=== PATIENT | male | born 1950 | race Caucasian/White ===

== ENCOUNTER 2018-07-15 12:19 | Outpatient (CLI) | payer MEDICARE, MEDICAID | END 2018-07-15 23:59 | disposition home or self-care (01) | LOC: CARD DIAG 12:19 | PROVIDERS: ATTEND Physician Assistant | DX: I11.9 Hypertensive heart disease without heart failure (principal); I25.9 Chronic ischemic heart disease, unspecified; I99.9 Unspecified disorder of circulatory system; F17.200 Nicotine dependence, unspecified, uncomplicated | CPT/HCPCS: 93306 ==

== ENCOUNTER 2018-12-05 12:32 | Day surgery (SDC) | payer MEDICARE, MEDICAID ==
[~2018-12-05] VITALS: Ht 177.8 cm; Wt 91.8 kg
[2018-12-05 12:51] VITALS: BP 160/89
[2018-12-05] MEDS ORDERED: fentaNYL/PF 50MCG/1 ML 2ML syringe ONE (12:53)
[2018-12-05] MEDS ORDERED: MIDAZolam 5mg/5ml vial ONE (12:54)
[2018-12-05] MEDS ORDERED: IPRA3AMP9 IH (13:09)
[2018-12-05] MEDS ORDERED: UMEC62.5 INH (13:09)
[2018-12-05] MEDS ORDERED: ALBU18HF2 INH (13:10)
[2018-12-05] MEDS ORDERED: BUDE10.2 INH (13:10)
[2018-12-05] MEDS ORDERED: LISI1TAB9 PO (13:29)
[2018-12-05] MEDS ORDERED: BICA50TA7 PO (13:29)
[2018-12-05] MEDS ORDERED: FLO0.4C PO (13:30)
[2018-12-05] MEDS ORDERED: METF-438 PO (13:30)
[2018-12-05 14:41] VITALS: BP 118/78
[2018-12-05 14:51] VITALS: BP 153/80
[2018-12-05 15:01] VITALS: BP 129/83
[2018-12-05 15:10] VITALS: BP 173/94
[2018-12-05 15:20] VITALS: BP 151/82
== END 2018-12-05 15:26 | disposition home or self-care (01) ==
LOC: GI LAB 12:32
PROVIDERS: ATTEND Internal Medicine Gastroenterology
DX: Z12.11 Encounter for screening for malignant neoplasm of colon (principal); K63.5 Polyp of colon; K62.1 Rectal polyp; K64.8 Other hemorrhoids
CPT/HCPCS: 45380; 45385; G0500; J2250; J3010; J7030; 99152; 99153; A4620

== ENCOUNTER 2019-04-11 14:13 | Inpatient (IN) | payer MEDICARE, MEDICAID ==
[~2019-04-11] VITALS: Ht 180.3 cm; Wt 84.0 kg
[~2019-04-11 14:13] MED LIST: ALBU18HF2 INH; BICA50TA7 PO; BUDE10.2 INH; FLO0.4C PO; IPRA3AMP9 IH; LISI1TAB32 PO; METF-438 PO; UMEC62.5 PO
[2019-04-11] MEDS ORDERED: ipratropium/albuterol 3ml nebule NEB ONE (15:20)
[2019-04-11] MEDS ORDERED: CefTRIAXone 2gm/D5W 50ml 50 ML IV ONE (15:20)
[2019-04-11] MEDS ORDERED: normal saline 1000ML IV soln IV ONE (15:20)
[2019-04-11 16:24] LABS: BASOPHILS # (AUTO) 0.1 X10'3 (0-0.2); BASOPHILS % (AUTO) 1.3 % (0-1); EOSINOPHILS # (AUTO) 0.3 X10'3 (0-0.9); EOSINOPHILS % (AUTO) 4.6 % (0-6); HEMATOCRIT 40.5 % (42.0-52.0); HEMOGLOBIN 14.1 g/dl (14.0-17.9); LYMPHOCYTES # (AUTO) 0.8 X10'3 (1.1-4.8); LYMPHOCYTES % (AUTO) 10.6 % (21-51); MEAN CORPUSCULAR HEMOGLOBIN 32.3 PG (27.0-31.0); MEAN CORPUSCULAR HGB CONC 34.8 g/dL (33.0-36.5); MEAN CORPUSCULAR VOLUME 92.8 FL (78-98); MEAN PLATELET VOLUME 8.6 FL (7.4-10.4); MONOCYTES # (AUTO) 0.7 X10'3 (0-0.9); MONOCYTES % (AUTO) 10.1 % (2-12); NEUTROPHILS # (AUTO) 5.4 X10'3 (1.8-7.7); NEUTROPHILS % (AUTO) 73.4 % (42-75); PLATELET COUNT 207 X10'3 (140-440); RED BLOOD COUNT 4.36 X10'6 (4.70-6.10); RED CELL DISTRIBUTION WIDTH 14.3 % (11.5-14.5); WHITE BLOOD COUNT 7.3 X10'3 (4.5-11.0)
[2019-04-11 16:26] LABS: D-DIMER 0.57 MG/L FEU (0-0.50)
--- NOTE | 2019-04-11 16:27 | NUR ---
RT AT BEDSIDE.
[2019-04-11 16:30] LABS: ALANINE AMINOTRANSFERASE 34 U/L (12-78); ALBUMIN 3.5 G/DL (3.4-5.0); ALKALINE PHOSPHATASE 52 IU/L (46-116); ANION GAP 11 (8-16); ASPARTATE AMINO TRANSFERASE 29 U/L (10-37); BILIRUBIN,TOTAL 0.4 MG/DL (0.1-1.0); BLOOD UREA NITROGEN 34 MG/DL (7-18); BUN/CREATININE RATIO 20.2 (5.4-32.0); CALCIUM 9.4 MG/DL (8.5-10.1); CHLORIDE 101 MMOL/L (99-107); CREATININE 1.68 MG/DL (0.60-1.10); GLUCOSE 107 MG/DL (70-104); MAGNESIUM 1.3 MG/DL (1.5-2.4); POTASSIUM 3.5 MMOL/L (3.5-5.1); SODIUM 137 MMOL/L (135-145); TOTAL CARBON DIOXIDE 24.8 MMOL/L (24-32); TOTAL PROTEIN 6.9 G/DL (6.4-8.2); eGFR 41 ML/MIN
[2019-04-11 17:02] LABS: CLARITY,URINE CLOUDY (Clear); COLOR,URINE YELLOW (Yellow); GLUCOSE, URINE NEGATIVE (Neg); KETONES,URINE TRACE mg/dl (Neg); LEUKOCYTE ESTERASE ,URINE MODERATE (Neg); NITRITES, URINE NEGATIVE (Neg); OCCULT BLOOD,URINE LARGE (Neg); PROTEIN,URINE 100 mg/dl (Neg); UROBILINOGEN,URINE 0.2 E.U/dL (0.2-1.0)
[2019-04-11 17:04] LABS: UA COLLECTION TYPE URINAL
[2019-04-11 17:26] LABS: MUCUS STRANDS MANY /LPF (Neg); SQUAMOUS EPITHELIAL CELL,UR FEW /LPF (FEW)
[2019-04-11 17:28] LABS: COARSE GRANULAR CAST 0-3 /LPF (NEGATIVE); TRANSITIONAL EPI CELLS,URINE FEW /HPF
[2019-04-11 17:30] LABS: RBC,URINE 20-50 /HPF (0-2); WBC,URINE 50-100 /HPF (0-4)
[2019-04-11 17:31] LABS: BACTERIA,URINE FEW /HPF (Neg); RENAL CELLS, URINE FEW /HPF
[2019-04-11] MEDS ORDERED: acetaminophen 325mg tablet PO PRN (17:55)
[2019-04-11] MEDS ORDERED: mag hydrox/Alum hydrox/simeth 30ml oral suspension PO PRN (17:55)
[2019-04-11] MEDS ORDERED: magnesium hydroxide 30ml (MOM) UD suspension PO PRN (17:55)
[2019-04-11] MEDS ORDERED: ondansetron/PF 4mg/2ml inj IV PRN (17:55)
[2019-04-11] MEDS: normal saline 1000ml 1,000 ML IV SCH (19:45)
[2019-04-11] MEDS: heparin, porcine 5000 units/ml vial SQ SCH (19:46)
[2019-04-11] MEDS ORDERED: albuterol 2.5 MG/3 ML nebule NEB PRN ×2 (19:55→21:41)
[2019-04-11] MEDS: UMECLIDINIUM BROMIDE IH SCH (20:25)
[2019-04-11 21:10] VITALS: BP 140/76
--- NOTE | 2019-04-11 21:12 | NUR ---
pt arrived to floor via gurney on tele box. Transferred to bed SBA. VSS. Removed clothing and completed skin check, removed depends and placed dry flows. No complaints. Worried about incontinence and BM.
[2019-04-11] MEDS ORDERED: dextrose ORAL solution 15 GM/59 ML bottle PO PRN ×2 (21:25)
[2019-04-11] MEDS ORDERED: magnesium 4gm in 100ml NS 100 ML IV PRN (21:25)
[2019-04-11] MEDS ORDERED: potassium CL 10mEq/100ml bag 100 ML IV PRN (21:25)
[2019-04-11] MEDS ORDERED: insulin Lispro (HumaLOG) vial - multi-dose SQ SCH (21:25)
[2019-04-11] MEDS ORDERED: glucagon, human recombinant 1mg kit SUBCUT PRN (21:25)
[2019-04-11] MEDS ORDERED: dextrose 50%-water 50ml dispensing syringe IV PRN ×2 (21:25)
[2019-04-11] MEDS ORDERED: magnesium 2GM in 50ml NS 50 ML IV PRN (21:25)
[2019-04-11] MEDS: Melatonin 3mg tablet PO PRN (21:56)
[2019-04-11] MEDS: magnesium Cl slow-release 64mg tablet PO PRN (22:45)
[2019-04-11] MEDS: albuterol 2.5 MG/3 ML nebule NEB SCH (23:05)
[2019-04-11] MEDS: budesonide 0.5mg/2ml UD nebule IH SCH (23:06)
[2019-04-12] VITALS: BP 112/48
[2019-04-12] MEDS: albuterol 2.5 MG/3 ML nebule NEB SCH ×4 (03:05→20:31)
[2019-04-12] MEDS: normal saline 1000ml 1,000 ML IV SCH ×2 (05:08→14:11)
[2019-04-12 05:25] LABS: BASOPHILS # (AUTO) 0.1 X10'3 (0-0.2); BASOPHILS % (AUTO) 1.2 % (0-1); EOSINOPHILS # (AUTO) 0.3 X10'3 (0-0.9); EOSINOPHILS % (AUTO) 5.3 % (0-6); HEMATOCRIT 35.9 % (42.0-52.0); HEMOGLOBIN 12.8 g/dl (14.0-17.9); LYMPHOCYTES # (AUTO) 0.5 X10'3 (1.1-4.8); LYMPHOCYTES % (AUTO) 10.6 % (21-51); MEAN CORPUSCULAR HGB CONC 35.7 g/dL (33.0-36.5); MEAN CORPUSCULAR VOLUME 92.4 FL (78-98); MEAN PLATELET VOLUME 8.5 FL (7.4-10.4); MONOCYTES # (AUTO) 0.5 X10'3 (0-0.9); MONOCYTES % (AUTO) 10.1 % (2-12); NEUTROPHILS # (AUTO) 3.5 X10'3 (1.8-7.7); NEUTROPHILS % (AUTO) 72.8 % (42-75); PLATELET COUNT 173 X10'3 (140-440); RED BLOOD COUNT 3.88 X10'6 (4.70-6.10); RED CELL DISTRIBUTION WIDTH 14.2 % (11.5-14.5); WHITE BLOOD COUNT 4.8 X10'3 (4.5-11.0)
[2019-04-12 05:37] LABS: ALBUMIN 2.9 G/DL (3.4-5.0); ANION GAP 11 (8-16); BLOOD UREA NITROGEN 23 MG/DL (7-18); CALCIUM 8.5 MG/DL (8.5-10.1); CHLORIDE 107 MMOL/L (99-107); CREATININE 1.21 MG/DL (0.60-1.10); GLUCOSE 110 MG/DL (70-104); MAGNESIUM 1.1 MG/DL (1.5-2.4); POTASSIUM 3.6 MMOL/L (3.5-5.1); SODIUM 140 MMOL/L (135-145); TOTAL CARBON DIOXIDE 22.3 MMOL/L (24-32); eGFR 60 ML/MIN
--- NOTE | 2019-04-12 06:41 | NUR ---
Problems reprioritized. Patient report given, questions answered & plan of care reviewed with AMELIA Starks.
[2019-04-12 07:20] VITALS: BP 133/66
[2019-04-12] MEDS ORDERED: ipratropium/albuterol 3ml nebule IH SCH (08:00)
[2019-04-12] MEDS: UMECLIDINIUM BROMIDE IH SCH (08:00)
[2019-04-12] MEDS: budesonide 0.5mg/2ml UD nebule IH SCH ×2 (08:38→20:31)
--- NOTE | 2019-04-12 08:39 | NUR ---
PAGER ID: [phone] MESSAGE: [phone]
[2019-04-12] MEDS: CefTRIAXone/D5W-Rocephin 1gm 50 ML IV SCH (09:11)
[2019-04-12] MEDS: tamsulosin 0.4mg capsule PO SCH (09:11)
[2019-04-12] MEDS: magnesium Cl slow-release 64mg tablet PO PRN ×2 (09:11→17:51)
--- NOTE | 2019-04-12 09:48 | NUR ---
Resent last page to
[2019-04-12] MEDS: heparin, porcine 5000 units/ml vial SQ SCH ×2 (11:39→20:36)
[2019-04-12 12:10] VITALS: BP 144/59
[2019-04-12] MEDS ORDERED: potassium Cl 20 mEq SR tablet PO STA (12:32)
[2019-04-12] MEDS ORDERED: magnesium 2GM in 50ml NS 50 ML IV ONE (12:35)
--- NOTE | 2019-04-12 12:56 | NUR ---
Pt. states he is voiding frequently but not a lot of volume. Refuses to use urinal and is otherwise incontinent/voiding in toilet. Bladder scanned 448ml. notified.
--- NOTE | 2019-04-12 14:21 | NUR ---
PT. STRAIGHT CATHED PER PROTOCOL. 350ML OUT. PT STATES RELIEF. CONDOM CATH PLACED TO MEASURE MORE ACCURATE I & OS.
--- NOTE | 2019-04-12 17:15 | NUR ---
PT BLADDER SCANNED. 487ML IN BLADDER.
--- NOTE | 2019-04-12 17:19 | NUR ---
PAGER ID: [phone] MESSAGE: BOBBY ARMSTRONG [id number] PT HAS OVER 400 IN BLADDER. MAY WE HAVE AN ORDER FOR A FC? MAY WE HAVE AN ORDER FOR IMODIUM? [phone]
--- NOTE | 2019-04-12 17:34 | NUR ---
RESENT LAST PAGE
--- NOTE | 2019-04-12 17:50 | NUR ---
RESENT LAST PAGE
--- NOTE | 2019-04-12 18:26 | NUR ---
MD DINH RETURNED PAGE. STATES NOT TO STRAIGHT CATH OR F/C PT. SINCE HE IS ASYMPTOMATIC. FLOMAX ORDERED. NURSING TO ENCOURAGE PT. TO AMBULATE. WILL PASS ON AND CONT. TO MONITOR WHILE ON MY SHIFT.
--- NOTE | 2019-04-12 18:35 | NUR ---
CHECKED ON PT. PT ALIVE AND BREATHING. GAVE REPORT TO JORGE CISNEROS.
--- NOTE | 2019-04-12 19:40 | NUR ---
Pt got OOB to restroom. Began feeling faint, dizzy, SOB needed to sit. Advised pt to move slowly when getting OOB, dangle, will check orthostatics next time OOB and hook to O2 monitor. Daughters in room at bedside.
[2019-04-12 20:00] VITALS: BP 149/70
--- NOTE | 2019-04-12 20:20 | NUR ---
Dr. Khan at patient bedside.
[2019-04-12] MEDS: Melatonin 3mg tablet PO PRN (20:39)
[2019-04-12] MEDS ORDERED: insulin glargine (Lantus) pen - multi-dose SQ SCH (21:00)
[2019-04-12] MEDS ORDERED: tamsulosin 0.4mg capsule PO SCH (21:00)
[2019-04-13] VITALS: BP 130/60
[2019-04-13] MEDS: normal saline 1000ml 1,000 ML IV SCH ×2 (00:03→09:57)
[2019-04-13] MEDS: HYDROcodone/acetaminophen 5mg/325mg tablet PO PRN ×2 (00:08→09:58)
[2019-04-13] MEDS: albuterol 2.5 MG/3 ML nebule NEB SCH ×2 (03:22→07:52)
[2019-04-13 05:59] LABS: BASOPHILS # (AUTO) 0.1 X10'3 (0-0.2); BASOPHILS % (AUTO) 1.4 % (0-1); EOSINOPHILS # (AUTO) 0.3 X10'3 (0-0.9); EOSINOPHILS % (AUTO) 6.5 % (0-6); HEMATOCRIT 37.1 % (42.0-52.0); HEMOGLOBIN 13.1 g/dl (14.0-17.9); LYMPHOCYTES # (AUTO) 0.5 X10'3 (1.1-4.8); LYMPHOCYTES % (AUTO) 12.2 % (21-51); MEAN CORPUSCULAR HEMOGLOBIN 32.9 PG (27.0-31.0); MEAN CORPUSCULAR HGB CONC 35.2 g/dL (33.0-36.5); MEAN CORPUSCULAR VOLUME 93.3 FL (78-98); MEAN PLATELET VOLUME 8.7 FL (7.4-10.4); MONOCYTES # (AUTO) 0.4 X10'3 (0-0.9); MONOCYTES % (AUTO) 10.5 % (2-12); NEUTROPHILS # (AUTO) 2.7 X10'3 (1.8-7.7); NEUTROPHILS % (AUTO) 69.4 % (42-75); PLATELET COUNT 158 X10'3 (140-440); RED BLOOD COUNT 3.98 X10'6 (4.70-6.10); RED CELL DISTRIBUTION WIDTH 13.9 % (11.5-14.5); WHITE BLOOD COUNT 3.9 X10'3 (4.5-11.0)
[2019-04-13 06:31] LABS: ALBUMIN 2.9 G/DL (3.4-5.0); ANION GAP 10 (8-16); BLOOD UREA NITROGEN 13 MG/DL (7-18); BUN/CREATININE RATIO 11.9 (5.4-32.0); CALCIUM 8.7 MG/DL (8.5-10.1); CHLORIDE 111 MMOL/L (99-107); CREATININE 1.09 MG/DL (0.60-1.10); GLUCOSE 97 MG/DL (70-104); MAGNESIUM 1.5 MG/DL (1.5-2.4); POTASSIUM 3.7 MMOL/L (3.5-5.1); SODIUM 143 MMOL/L (135-145); TOTAL CARBON DIOXIDE 21.8 MMOL/L (24-32); eGFR 67 ML/MIN
--- NOTE | 2019-04-13 06:33 | NUR ---
Problems reprioritized. Patient report given, questions answered & plan of care reviewed with AMELIA Starks.
[2019-04-13 07:13] VITALS: BP 138/69
[2019-04-13] MEDS: budesonide 0.5mg/2ml UD nebule IH SCH (07:52)
[2019-04-13] MEDS: UMECLIDINIUM BROMIDE IH SCH (08:00)
[2019-04-13] MEDS: heparin, porcine 5000 units/ml vial SQ SCH (09:57)
[2019-04-13] MEDS: tamsulosin 0.4mg capsule PO SCH (09:57)
[2019-04-13] MEDS: CefTRIAXone/D5W-Rocephin 1gm 50 ML IV SCH (09:58)
[2019-04-13 12:00] VITALS: BP_SYST 148; BP_SYST 155; BP_SYST 165; BP_DIAS 69; BP_DIAS 75
[2019-04-13] MEDS ORDERED: HYDR-3965 PO (12:12)
--- NOTE | 2019-04-13 13:59 | NUR ---
Pt. discharged. Case management paged to ensure Home Health.
--- NOTE | 2019-04-13 14:00 | NUR ---
Pt. discharged in stable condition. Aware to not continue his lisinopril and to monitor his blood pressure. Aware to return to PCP or nearest ER if any symptoms persist. IV DC"D, pressure bandage applied, no s/sx bleeding noted. Tele taken off, cleaned and returned. Pt. gathered all of his belongings and took them with him. Some SOB while going to the restroom and sitting in w/c. Check SA02 92% on RA. Pt. refusing to have oxygen at home. No s/sx hypo/hyperglycemia upon discharge. pt. aware to f/u with a urologist and has an appointment with his PCP. tomorrow. Escorted by hospital staff in w/c to private vehicle- family to drive him home.
[2019-04-13] MEDS ORDERED: lactobacillus rhamnosus 10,000 MMU CELLS/CAPSULE PO SCH (20:00)
== END 2019-04-13 14:06 | disposition home health service (06) | DRG 314 ==
LOC: ER 14:14 → ED HOLD 17:53 → SUR 3N 21:49
PROVIDERS: ADMIT Family Medicine; ATTEND Family Medicine
DX: I95.9 Hypotension, unspecified (principal); N17.0 Acute kidney failure with tubular necrosis; N30.00 Acute cystitis without hematuria; E11.9 Type 2 diabetes mellitus without complications; E86.0 Dehydration; C61 Malignant neoplasm of prostate; F12.90 Cannabis use, unspecified, uncomplicated; R55 Syncope and collapse; F17.210 Nicotine dependence, cigarettes, uncomplicated; I10 Essential (primary) hypertension; J43.9 Emphysema, unspecified; Z87.440 Personal history of urinary (tract) infections; Z88.8 Allergy status to other drugs, medicaments and biological substances; Z79.899 Other long term (current) drug therapy
CPT/HCPCS: 36415; 71045; 80048; 80053; 81001; 82948; 83036; 83605; 83735; 84145; 85025; 85379; 87040; 87081; 87088; 93005; 93306; 94640; 94760; 96365; 99285; G0378; J0696; J1644; J1815; J3475; J7030; J7626

== ENCOUNTER 2020-08-15 06:18 | Emergency (ER) | payer MEDICARE, MEDICAID ==
[~2020-08-15] VITALS: Ht 177.8 cm; Wt 79.5 kg
[~2020-08-15 06:18] MED LIST changes: -BICA50TA7 PO; -LISI1TAB32 PO
[2020-08-15] MEDS ORDERED: ipratropium/albuterol 3ml nebule NEB ONE (06:40)
[2020-08-15] MEDS ORDERED: furosemide 40mg/4ml inj IV ONE (06:40)
[2020-08-15] MEDS ORDERED: methylPREDNISolone sod succ 125mg/2ml vial IV ONE (06:40)
--- NOTE | 2020-08-15 07:05 | NUR ---
I have reviewed and agree with all medications administered and interventions performed by [facility] Student, Gisel Mancilla.
[2020-08-15 07:15] LABS: BASOPHILS # (AUTO) 0.1 X10'3 (0-0.2); BASOPHILS % (AUTO) 0.8 % (0-1); EOSINOPHILS # (AUTO) 0.2 X10'3 (0-0.9); EOSINOPHILS % (AUTO) 1.7 % (0-6); HEMATOCRIT 46.8 % (42.0-52.0); HEMOGLOBIN 15.5 g/dl (14.0-17.9); LYMPHOCYTES # (AUTO) 0.9 X10'3 (1.1-4.8); LYMPHOCYTES % (AUTO) 9.5 % (21-51); MEAN CORPUSCULAR HEMOGLOBIN 29.8 PG (27.0-31.0); MEAN CORPUSCULAR HGB CONC 33.2 g/dL (33.0-36.5); MEAN CORPUSCULAR VOLUME 89.9 FL (78-98); MEAN PLATELET VOLUME 7.9 FL (7.4-10.4); MONOCYTES # (AUTO) 0.5 X10'3 (0-0.9); MONOCYTES % (AUTO) 5.6 % (2-12); NEUTROPHILS # (AUTO) 7.9 X10'3 (1.8-7.7); NEUTROPHILS % (AUTO) 82.4 % (42-75); PLATELET COUNT 183 X10'3 (140-440); RED CELL DISTRIBUTION WIDTH 14.6 % (11.5-14.5); WHITE BLOOD COUNT 9.6 X10'3 (4.5-11.0)
[2020-08-15 07:20] LABS: ALANINE AMINOTRANSFERASE 23 U/L (12-78); ALBUMIN 3.3 G/DL (3.4-5.0); ALBUMIN/GLOBULIN RATIO 0.8 (1.1-1.5); ALKALINE PHOSPHATASE 76 IU/L (46-116); ANION GAP 4 (8-16); ASPARTATE AMINO TRANSFERASE 19 U/L (10-37); BILIRUBIN,TOTAL 0.4 MG/DL (0.1-1.0); BLOOD UREA NITROGEN 18 MG/DL (7-18); BUN/CREATININE RATIO 18.2 (5.4-32.0); CALCIUM 9.7 MG/DL (8.5-10.1); CHLORIDE 107 MMOL/L (99-107); CREATININE 0.99 MG/DL (0.60-1.10); GLUCOSE 121 MG/DL (70-104); POTASSIUM 4.3 MMOL/L (3.5-5.1); SODIUM 144 MMOL/L (135-145); TOTAL CARBON DIOXIDE 33.3 MMOL/L (24-32); TOTAL PROTEIN 7.5 G/DL (6.4-8.2); eGFR 75 ML/MIN
[2020-08-15] MEDS ORDERED: levoFLOXACIN-Levaquin 750MG/D5 150 ML IV ONE (07:35)
[2020-08-15 09:46] VITALS: BP 171/93
[2020-08-15] MEDS ORDERED: LEVO500T89 PO (09:48)
[2020-08-15] MEDS ORDERED: PRED20TA PO (09:48)
[2020-08-15] MEDS ORDERED: albuterol 2.5 MG/3 ML nebule NEB ONE (09:50)
--- NOTE | 2020-08-15 10:14 | NUR ---
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 pt finishing a breathing treatment.
== END 2020-08-15 10:50 | disposition left against medical advice (07) ==
LOC: ER 06:19
DX: J96.00 Acute respiratory failure, unspecified whether with hypoxia or hypercapnia (principal); J44.1 Chronic obstructive pulmonary disease with (acute) exacerbation; J18.9 Pneumonia, unspecified organism; R05 Cough; Z20.822 Contact with and (suspected) exposure to COVID-19; I10 Essential (primary) hypertension; E11.9 Type 2 diabetes mellitus without complications; F12.90 Cannabis use, unspecified, uncomplicated; Z85.9 Personal history of malignant neoplasm, unspecified; Z88.8 Allergy status to other drugs, medicaments and biological substances; Z79.2 Long term (current) use of antibiotics; Z79.899 Other long term (current) drug therapy
CPT/HCPCS: 36415; 71045; 80053; 83605; 83880; 84145; 84484; 85025; 87040; 87635; 93005; 94640; 96365; 96366; 96375; 99285; J1940; J1956; J2930; 94760